=== PATIENT | male | born 1940 | race Caucasian/White ===

== ENCOUNTER → 2017-12-12 10:08 | Outpatient (CLI) | payer MEDICARE, OTHER, SELFPAY ==
--- NOTE | 2017-12-12 | DI.RAD.S_ITS ---
PROCEDURE: XR LUMBAR SPINE 2-3V INDICATIONS: SCIATICA TECHNIQUE: 3 views of the lumbar spine were acquired. COMPARISON: None. FINDINGS: Bones: 5 nonrib-bearing, lumbar type vertebral bodies are seen. No displaced fractures are seen. No suspicious lytic or blastic lesions are seen. Mild dextroconvex scoliotic curvature is seen. No focal AP alignment abnormality is seen. There is moderate disc space narrowing at L3-L4, and moderate to severe disc space narrowing at L4-L5 and L5-S1. Endplate irregularity and sclerosis are seen, which are most prominent inferiorly. Facet arthropathy is seen throughout, which is most prominent inferiorly. Soft tissues: Overlying bowel gas pattern is normal. No suspicious soft tissue calcifications. IMPRESSION: Lumbar spine degenerative changes are seen, which are most prominent at the L4-L5 and L5-S1 levels. Mild dextroconvex scoliotic curvature. Dictated by: Nhan Soto M.D. on 12/12/2017 at 10:14 Approved by: Nhan Soto M.D. on 12/12/2017 at 10:16
== END ==
PROVIDERS: PCP Orthopaedic Surgery; Visit Provider Orthopaedic Surgery
DX: M51.16 Intervertebral disc disorders with radiculopathy, lumbar region (principal); M51.17 Intervertebral disc disorders with radiculopathy, lumbosacral region; M41.9 Scoliosis, unspecified
CPT/HCPCS: 72100

== ENCOUNTER → 2018-04-15 13:44 | Outpatient (CLI) | payer MEDICARE, OTHER, SELFPAY ==
--- NOTE | 2018-04-15 | DI.RAD.S_ITS ---
PROCEDURE: XR KUB INDICATIONS: RLQ PAIN TECHNIQUE: One view of the abdomen acquired. COMPARISON: None. FINDINGS: Surgical changes and devices: None. Bowel: Bowel gas pattern is normal. Large amount of stool is present Soft tissues: No suspicious abdominal calcifications. Visualized solid organ contours appear normal in size. Bones: No suspicious bony lesions. Mild dextrocurvature. Scattered discogenic changes IMPRESSION: Large amount of stool throughout the colon. No evidence of bowel obstruction. Dictated by: Shai Dewitt M.D. on 04/15/2018 at 14:37 Approved by: Shai Dewitt M.D. on 04/15/2018 at 14:39
--- NOTE | 2018-04-15 | DI.RAD.S_ITS ---
PROCEDURE: XR SHOULDER RT MIN 2V INDICATIONS: RIGHT SHOULDER PAIN TECHNIQUE: 3 views of the shoulder were acquired. COMPARISON: None. FINDINGS: Bones: No fractures or dislocations. No suspicious bony lesions. Visualized ribs appear intact. Advanced acromioclavicular and moderate to severe glenohumeral degenerative joint disease. Chronic right rib fractures. Mild lateral downsloping appearance of the acromion Soft tissues: No suspicious soft tissue calcifications. Incidentally noted right carotid atherosclerosis IMPRESSION: Severe right shoulder joint degeneration. Dictated by: Shai Dewitt M.D. on 04/15/2018 at 14:39 Approved by: Shai Dewitt M.D. on 04/15/2018 at 14:43
== END ==
PROVIDERS: PCP Family Medicine; Visit Provider Family Medicine
DX: R10.31 Right lower quadrant pain (principal); M25.511 Pain in right shoulder; M19.011 Primary osteoarthritis, right shoulder
CPT/HCPCS: 73030; 74018

== ENCOUNTER → 2018-12-30 09:24 | Outpatient (CLI) | payer MEDICARE, OTHER, SELFPAY ==
--- NOTE | 2018-12-30 | DI.US.S_ITS ---
PROCEDURE: US CAROTID DOPPLER BI INDICATIONS: OTHER SPECIFIED SYMPTOMS AND SIGNS INVOLVING THE CAROTID ART TECHNIQUE: Color and pulse Doppler interrogation was performed of both carotid systems, with image documentation and velocity measurements. COMPARISON: None. FINDINGS: Stenosis calculations are based on SRU (Society of Radiologists in Ultrasound) criteria. Right side: Brachial blood pressure: 130/63 mm Hg. Common carotid artery peak systolic velocity: 104 cm/sec. Internal carotid artery peak systolic velocity: 142 cm/sec. Internal carotid artery end diastolic velocity: 22 cm/sec. External carotid artery peak systolic velocity: 339 cm/sec. ICA/CCA peak systolic ratio: 1.4. Moore scale imaging description: Mild calcified atherosclerotic plaque. Percent internal carotid artery stenosis: Approximately 50% stenosis. Vertebral artery: Flow direction is antegrade. Left side: Brachial blood pressure: 126/55 mm Hg. Common carotid artery peak systolic velocity: 134 cm/sec. Internal carotid artery peak systolic velocity: 243 cm/sec. Internal carotid artery end diastolic velocity: 32 cm/sec. External carotid artery peak systolic velocity: 187 cm/sec. ICA/CCA peak systolic ratio: 1.8. Moore scale imaging description: Moderate calcified and soft atherosclerotic plaque. Percent internal carotid artery stenosis: 50-69% stenosis. Vertebral artery: Flow direction is antegrade. IMPRESSION: 1. Approximately 50% stenosis in the right ICA. 2. Approximately 50-69% stenosis in the left ICA. 3. Vertebral artery flow is antegrade bilaterally. Dictated by: Sav Rocha M.D. on 12/30/2018 at 11:18 Approved by: Sav Rocha M.D. on 12/30/2018 at 11:26
== END ==
PROVIDERS: Family Provider Family Medicine; PCP Family Medicine; Visit Provider Psychiatry & Neurology Neurology
DX: I65.23 Occlusion and stenosis of bilateral carotid arteries (principal); R09.89 Other specified symptoms and signs involving the circulatory and respiratory systems
CPT/HCPCS: 93880

== ENCOUNTER → 2021-02-15 11:08 | Outpatient (CLI) | payer MEDICARE, OTHER, SELFPAY ==
--- NOTE | 2021-02-15 | DI.RAD.S_ITS ---
PROCEDURE: XR SHOULDER LT MIN 2V INDICATIONS: Primary osteoarthritis, unspecified shoulder TECHNIQUE: 3 views of the shoulder were acquired. COMPARISON: [facility], CR, XR SHOULDER RT MIN 2V, 04/15/2018, 13:55. FINDINGS: Bones: No acute fracture. Severe AC joint degeneration. Moderate to severe glenohumeral degenerative joint disease. Scattered degenerative subchondral sclerosis and spurring. Soft tissues: No suspicious soft tissue calcifications. IMPRESSION: Left shoulder joint degeneration as above. If the patient's pain or other symptoms persist, consider further evaluation with MRI Dictated by: Shai Dewitt M.D. on 02/15/2021 at 12:23 Approved by: Shai Dewitt M.D. on 02/15/2021 at 12:24
--- NOTE | 2021-02-15 | DI.RAD.S_ITS ---
PROCEDURE: XR SHOULDER RT MIN 2V INDICATIONS: Primary osteoarthritis, unspecified shoulder TECHNIQUE: 3 views of the shoulder were acquired. COMPARISON: [facility], CR, XR SHOULDER RT MIN 2V, 04/15/2018, 13:55. FINDINGS: Bones: No acute fracture. Severe AC joint degeneration. Moderate to severe glenohumeral degenerative joint disease also noted. Chronic appearing right-sided rib fractures with callus formation. Soft tissues: No suspicious soft tissue calcifications. IMPRESSION: Severe right shoulder joint degeneration. Similar appearance compared to prior study from 04/15/18. If the patient's pain or other symptoms persist, consider further evaluation with MRI Dictated by: Shai Dewitt M.D. on 02/15/2021 at 12:58 Approved by: Shai Dewitt M.D. on 02/15/2021 at 12:59
== END ==
PROVIDERS: Family Provider Family Medicine; PCP Family Medicine; Referring Provider Family Medicine; Visit Provider Family Medicine
DX: M19.011 Primary osteoarthritis, right shoulder (principal); M19.012 Primary osteoarthritis, left shoulder
CPT/HCPCS: 73030

== ENCOUNTER 2021-04-28 15:24 | Emergency (ER) | payer MEDICARE, OTHER, SELFPAY ==
[2021-04-28 15:34] VITALS: BP 155/73; PULSE 60; RESP 18; TEMP 36; O2SAT 94; BMI 27.2
[2021-04-28] MEDS: ACETAMINOPHEN 325 MG TABLET 650 MG PO (17:49)
--- NOTE | 2021-04-28 18:17 | ED_ITS ---
HPI - Skin/Abscess/Foreign Bdy General Chief complaint: Skin/Abscess/Foreign Body Stated complaint: ITCHING ALL OVER BODY Time Seen by Provider: 04/28/21 17:57 Source: patient Mode of arrival: Ambulatory Limitations: no limitations History of Present Illness HPI narrative: Patient is an 81-year-old male here for evaluation of what he describes as itching all over his body. He states that has been going on for the past couple of weeks. He states he is not having any rash. Tried some Benadryl couple days ago with only minimal improvement. No fevers. He does state that he has pain on the left side of his face and on his nose and on his upper lip on the left side. No fevers. No recent change to medications. No sore throat. No vision changes. Related Data Home Medications Medication Instructions Recorded Confirmed Respironics Dreamstation CPAP #1 ea 06/03/18 01/08/21 enalapril maleate 5 mg tablet 5 mg PO DAILY 01/08/21 01/08/21 finasteride 5 mg tablet 5 mg PO DAILY 01/08/21 01/08/21 meclizine 25 mg tablet 25 mg PO DAILY 01/08/21 01/08/21 meloxicam 15 mg tablet 15 mg PO DAILY 01/08/21 01/08/21 sertraline 50 mg tablet 50 mg PO DAILY 01/08/21 01/08/21 simvastatin 20 mg tablet 20 mg PO DAILY 01/08/21 01/08/21 tamsulosin 0.4 mg capsule (Flomax) 0.4 mg PO DAILY 01/08/21 01/08/21 umeclidinium 62.5 mcg/actuation 1 inh INHALATION DAILY 01/08/21 01/08/21 blister powder for inhalation (Incruse Ellipta) Previous Rx's Medication Instructions Recorded acyclovir 800 mg tablet 800 mg PO 5XD 10 Days #50 tab 04/28/21 Allergies Allergy/AdvReac Type Severity Reaction Status Date / Time niacin Allergy Verified 04/28/21 15:33 Review of Systems Constitutional Constitutional: Denies fever(s) and Denies headache(s) Eyes Eyes: Denies change in vision and Denies itchy eyes ENT Ears, Nose, Mouth, and Throat: Denies vertigo, Denies dizziness, Denies headache(s) and Denies sore throat Cardiovascular Cardiovascular: Reports system reviewed and no additional complaints, except as documented Respiratory Respiratory: Reports system reviewed and no additional complaints, except as documented Integumentary/Breasts Skin/Breast: Reports system reviewed and no additional complaints, except as documented, Reports as per HPI, Reports pruritus and Denies rash Neurologic Neurologic: Denies vertigo, Denies dizziness and Denies headache(s) Hematologic/Lymphatic On Anticoagulants: No Allergic/Immunologic Allergic/Immunologic: Denies itchy eyes Patient History Medical History Excessive daytime sleepiness Obstructive sleep apnea of adult Social History marital status: ( about 07/14/2020) details: to Sadia, 62 years household members: none lives independently: No (lives at Assisted Care facility) caregiver/support person: Yes (attentive daughter and residential staff) housing: assisted living facility ([facility]) Smoking Status: Former smoker Smoking Status: Former smoker Substance Use Type: does not use Exam Initial Vital Signs Initial Vital Signs: Vital Signs Temperature 96.8 F L 04/28/21 15:34 Pulse Rate 60 04/28/21 15:34 Respiratory Rate 18 04/28/21 15:34 Blood Pressure 155/73 H 04/28/21 15:34 Pulse Oximetry 94 04/28/21 15:34 Const General: cooperative and comfortable Limitations: mental status not altered HENMT Head: normal to inspection and normocephalic Ears: TM's normal bilaterally Face and sinus: erythema on the left and tenderness on the left Mouth: lip abnormal (Lesion left upper lip) Throat: posterior oropharynx normal Eyes Sclera: sclerae normal Cornea: corneas normal and fluorescein used Pupils: PERRL EOM: EOM intact bilaterally Resp Effort & Inspection: normal respiratory effort Cardio Rate: regular rate Skin Other: Patient does have dry skin. He has lesions on the left side of his face that appear to be small ulcerations. There are no vesicles. No pustules. Neuro General: patient alert, patient awake and patient oriented x3 Extrem General: capillary refill normal Course Orders Ordered: Discontinued Medications Acetaminophen (Acetaminophen 325 Mg Tablet) 650 mg PO NOW ONE Stop: 04/28/21 17:43 Last Admin: 04/28/21 17:49 Dose: 650 mg Documented by: MELISSA Acyclovir (Acyclovir 200 Mg Capsule) 800 mg PO NOW ONE Stop: 04/28/21 18:37 Last Admin: 04/28/21 18:40 Dose: 800 mg Documented by: MELISSA Fluorescein Sodium (Fluorescein 1 Mg Strip) 1 mg EYE-BOTH NOW ONE Stop: 04/28/21 18:18 Last Admin: 04/28/21 18:38 Dose: 1 mg Documented by: MELISSA Vital Signs Vital signs: Vital Signs - 8 hr 04/28/21 18:52 Pulse Rate 58 L Respiratory Rate 18 Blood Pressure 176/76 H Pulse Oximetry 94 MDM - Skin/Abscess/Foreign Bdy MDM Narrative Medical decision making narrative: Lesions on the left side of his face that her consistent with zoster. It does involve his left lip. He does have lesion on the tip of his nose but nothing intranasal. His left ear into manic membrane are unremarkable. There is no uptake with fluorescein of his left eye. It appears the rashes develop with past couple days but he has had itching and pain for some time now. Will start him on antivirals. He was given return precautions and follow-up instructions. He expressed understanding and agreement. Discharge Plan Departure Patient Disposition: Home Clinical Impression: Shingles Activity Restrictions/Additional Instructions: Take the medications as directed. He can continue the rest of your medications as previously directed. Contact your primary doctor for a follow-up and return to the emergency department for any new or worsening symptoms. Prescriptions: New acyclovir 800 mg tablet 800 mg PO 5XD 10 Days Qty: 50 0RF Rx Instructions: space evenly during waking hours No Action (DME) Respironics Dreamstation CPAP Qty: 1 0RF Dose Instruction: As directed Label Comments: Pressure: 10-15 cmH2O DME: [facility] Rx Instructions: As directed enalapril maleate 5 mg tablet 5 mg PO DAILY 0RF meloxicam 15 mg tablet 15 mg PO DAILY 0RF simvastatin 20 mg tablet 20 mg PO DAILY 0RF tamsulosin [Flomax] 0.4 mg capsule 0.4 mg PO DAILY 0RF Incruse Ellipta 62.5 mcg/actuation blister with device 1 inh inhalation DAILY 0RF sertraline 50 mg tablet 50 mg PO DAILY 0RF meclizine 25 mg tablet 25 mg PO DAILY 0RF finasteride 5 mg tablet 5 mg PO DAILY 0RF Referrals: Thorpe,Washington Farhat, MD [Primary Care Provider] -
[2021-04-28] MEDS: FLUORESCEIN 1 MG STRIP EYE-BOTH (18:38)
[2021-04-28] MEDS: ACYCLOVIR 200 MG CAPSULE 800 MG PO (18:40)
[2021-04-28 18:52] VITALS: BP 176/76; PULSE 58; RESP 18; O2SAT 94
== END 2021-04-28 18:55 | disposition home or self-care (01) ==
PROVIDERS: Emergency Provider Emergency Medicine; Family Provider Family Medicine; PCP Family Medicine
DX: B02.9 Zoster without complications (principal)
CPT/HCPCS: 99283

== ENCOUNTER → 2021-06-26 11:47 | Outpatient (CLI) | payer MEDICARE, OTHER, SELFPAY ==
--- NOTE | 2021-06-26 | DI.RAD.S_ITS ---
PROCEDURE: XR LUMBAR SPINE 2-3V INDICATIONS: low back pain TECHNIQUE: 3 views of the lumbar spine were acquired. COMPARISON: [facility], CR, XR LUMBAR SPINE 2-3V, 12/12/2017, 10:03. FINDINGS: Bones: 5 [id number] vertebrae are present. There is mild dextroscoliosis. Trace retrolisthesis of L3 on L4 and L4 on L5. No vertebral body compression fractures. No suspicious bony lesions. There is degenerative disc disease, severe at L4-L5, moderate at L2-L3, L3-L4 and L5-S1. There is moderate facet arthropathy at L3-L4, L4-L5 and L5-S1. Compared with the last exam on 12/12/2017, there is mild progression of degenerative changes in lumbar spine. Soft tissues: Overlying bowel gas pattern is normal. Atherosclerotic calcifications are present. 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 Dictated by: Soren Gutierrez M.D. on 06/26/2021 at 17:43 Approved by: Soren Gutierrez M.D. on 06/27/2021 at 7:57
== END ==
PROVIDERS: Family Provider Family Medicine; PCP Family Medicine; Referring Provider Family Medicine; Visit Provider Family Medicine
DX: M51.36 Other intervertebral disc degeneration, lumbar region (principal); M51.37 Other intervertebral disc degeneration, lumbosacral region; M47.816 Spondylosis without myelopathy or radiculopathy, lumbar region; M47.817 Spondylosis without myelopathy or radiculopathy, lumbosacral region; M54.50 Low back pain, unspecified
CPT/HCPCS: 72100